=== PATIENT | female | born 1985 | race Caucasian/White ===

== ENCOUNTER 2017-07-29 06:15 | Inpatient (IN) | payer OTHER ==
[2017-07-29] MEDS ORDERED: TERBUTALINE 1 MG/ML VIAL SQ PRN (06:49)
[2017-07-29] MEDS ORDERED: METHYLERGONOVINE 0.2 MG/ML 1 ML AMP IM PRN (06:49)
[2017-07-29] MEDS ORDERED: OXYTOCIN 10 UNIT/ML 1 ML VIAL IM PRN (06:49)
[2017-07-29] MEDS ORDERED: CARBOPROST TROMETHAMINE 250 MCG/ML 1 ML AMP IM PRN (06:49)
[2017-07-29] MEDS ORDERED: LIDOCAINE 1% (PF) 10 MG/ML (30 ML SDV) SQ PRN (06:49)
[2017-07-29] MEDS: LACTATED RINGERS 1,000 ML IV SCH ×3 (07:05→16:48)
[2017-07-29] MEDS: OXYTOCIN 20 UNITS/1000 ML NS 1,000 ML IV SCH ×2 (07:30→23:38)
[2017-07-29 07:34] LABS: Basophils % (A) 0 %; CH 27.2; CHCM 31.9; Eosinophils # (A) 0.3 k/uL (0-0.7); Eosinophils % (A) 3 %; HCT 38.7 % (34.0-46.0); HDW 2.83; Hypochromasia Slight; Luc # (Auto) 0.08; Luc % (Auto) 1; Lymphocytes # (A) 1.3 k/uL (1.0-4.8); Lymphocytes % (A) 13 %; MCH 26.7 pg (25.0-35.0); MCHC 31.1 g/dL (31.0-37.0); MCV 85.7 fL (80.0-100.0); Mean Platelet Volume 7.3; Monocytes # (A) 0.5 k/uL (0-1.0); Monocytes % (A) 5 %; Neutrophils # (A) 8.1 k/uL (1.3-7.7); Neutrophils % (A) 79 %; RBC 4.51 m/uL (3.80-5.40); RDW 14.1 % (11.5-15.5); WBC 10.2 k/uL (3.8-10.6); WBC (Perox) 10.36
[2017-07-29 07:43] VITALS: BMI 54.3
[2017-07-29] MEDS ORDERED: BUTORPHANOL 1 MG/ML 1 ML VIAL IV PRN (09:30)
--- NOTE | 2017-07-29 09:35 | P.HPOB ---
History of Present Illness H&P Date: 07/29/17 Chief Complaint: 39-4/7 weeks, elective induction The patient is a 32-year-old 5 para 4004 admitted at 39-4/7 weeks as established by last menstrual period and confirmed by 12 week ultrasound. She is admitted for elective induction of labor with all signs reassuring. Her has been uncomplicated though she does carry the diagnosis of chronic hypertension for which she has been stable on labetalol 100 mg twice a day for the entirety of the . testing was reassuring throughout. She additionally is morbidly obese though growth was within the normal range in the third trimester. Diabetic screening was negative both early and in the second trimester. She additionally was found to be breech at 34+ weeks gestation but has reverted to vertex for the remainder of the . The fetus is in vertex presentation today. Group B strep status is negative. Obstetrical history: 5 para 4004 term vaginal deliveries without complications. Current statistics are listed above. EDC of 2016 was established by last menstrual period and confirmed by 12 week ultrasound. Laboratory workup demonstrates a blood type of B+ with a negative antibody screen. Rubella status is immune. The remainder of the laboratory workup was within normal limits. Early Glucola as well as second trimester Glucola were within normal limits. Group B strep status is negative. Gynecologic history: Unremarkable with no history of any infections to include STDs. Review of Systems Review of systems is confined to history of present illness. Past Medical History Past Medical History: Hypertension Additional Past Medical History / Comment(s): OB history: She has had 3 previous vaginal deliveries. This is her fifth . She has been on labetalol 100mg bid. B+, abs neg, Rub Imm, RPR NR, Hep B neg. History of Any Multi-Drug Resistant Organisms: None Reported Past Surgical History: No Surgical Hx Reported Past Anesthesia/Blood Transfusion Reactions: No Reported Reaction Past Psychological History: No Psychological Hx Reported Smoking Status: Never smoker Past Alcohol Use History: None Reported Past Drug Use History: None Reported - Past Family History Father Family Medical History: Diabetes Mellitus, Hypertension Medications and Allergies Home Medications Medication Instructions Recorded Confirmed Type Labetalol HCl [Labetalol HCl] 100 mg BID 10/25/15 07/29/17 History Pnv,Calcium 72/Iron/Folic Acid 1 tab PO DAILY 10/25/15 07/29/17 History [ Plus Tablet] Allergies Allergy/AdvReac Type Severity Reaction Status Date / Time No Known Allergies Allergy Verified 07/29/17 06:47 Exam - Vital Signs Vital signs: Vital Signs Temp Pulse Resp BP 07/29/17 06:47 98.0 F 85 18 139/77 Intake and Output 07/28/17 07/29/17 07/29/17 22:59 06:59 14:59 Other: Weight 143.789 kg In general, this is an obese white female in no acute distress. Her heart has a regular rhythm and rate without murmur. Her lungs are clear to auscultation bilaterally in all rowe. Her abdomen is obese, gravid, nondistended, has normal active bowel sounds, is soft, nontender, and without any palpable masses , hepatosplenomegaly, or hernias. Her extremities are without any cyanosis, clubbing, or significant edema and are nontender to palpation bilaterally. Digital cervical examination demonstrates her cervix to be approximately 2+ centimeters dilated, 50% effaced, the vertex in presentation at -2-3 station. Artificial rupture of membranes was carried out demonstrating clear fluid. Results Result Diagrams: 07/29/17 07:00 Abnormal Lab Results - Last 24 Hours (Table) 07/29/17 Range/Units 07:00 Neutrophils # 8.1 H (1.3-7.7) k/uL Assessment and Plan (1) Term Current Visit: Yes Status: Acute Code(s): Z34.80 - ENCOUNTER FOR SUPRVSN OF NORMAL , UNSP TRIMESTER SNOMED Code(s): 79593269 Plan: The patient has requested elective induction and been admitted for same. Pitocin augmentation has been started and she has undergone artificial rupture of membranes. She will continue to have close maternal and surveillance and expectant management will be practiced. She is a good candidate for either IV or epidural analgesia, whichever she may choose.
[2017-07-29] MEDS ORDERED: SODIUM CHLORIDE 0.9% 100 ML BAG ONE ×2 (13:12)
[2017-07-29] MEDS ORDERED: fentaNYL (PF) 50 MCG/ML 5 ML AMP ONE ×2 (13:12)
[2017-07-29] MEDS ORDERED: BUPIVACAINE (PF) 0.25% 30 ML VIAL ONE ×2 (13:12)
[2017-07-29] MEDS ORDERED: BUPIVACAINE (PF) 0.25% 25 ML, fentaNYL (PF) 200 MCG in SODIUM CHLORIDE 0.9% 71 ML EPIDURAL ONE (13:32)
[2017-07-29] MEDS ORDERED: diphenhydrAMINE 25 MG CAP PO PRN (22:54)
[2017-07-29] MEDS ORDERED: SIMETHICONE 80 MG CHEWABLE PO PRN (22:54)
[2017-07-29] MEDS ORDERED: LANOLIN CREAM 5 GM TUBE TOPICAL PRN (22:54)
[2017-07-29] MEDS ORDERED: ZOLPIDEM 5 MG TAB PO PRN (22:54)
[2017-07-29] MEDS ORDERED: WITCH HAZEL 1 EACH MED..PAD TOPICAL PRN (22:54)
[2017-07-29] MEDS ORDERED: Acetaminophen-Codeine 300-30mg TAB PO PRN ×2 (22:54)
[2017-07-29] MEDS ORDERED: IBUPROFEN 600 MG TAB PO PRN (22:54)
[2017-07-29] MEDS ORDERED: BENZOCAINE/MENTHOL SPRAY 1 GM/SPRAY AEROSOL TOPICAL PRN (22:54)
[2017-07-29] MEDS ORDERED: HYDROCORTISONE 2.5% RECTAL CREAM 30 GM TUBE RECTAL PRN (22:54)
[2017-07-29] MEDS ORDERED: diphenhydrAMINE 50 MG CAP PO PRN (22:54)
[2017-07-29] MEDS ORDERED: diphenhydrAMINE 50 MG/ML 1 ML VIAL IVP PRN ×2 (22:54)
[2017-07-29] MEDS ORDERED: DIPH,PERTUS(ACELL)TETVAC-LF 0.5 ML VIAL IM ONE (22:55)
--- NOTE | 2017-07-29 22:58 | P.PROBDLV ---
Vaginal Delivery Note - . Vaginal Delivery Note: The patient is a 32-year-old 5 para 4004 admitted at 39-5/7 weeks by good dating parameters. She is admitted for elective induction of labor with all signs reassuring. Her has been essentially uncomplicated though she does suffer from chronic hypertension was stable on labetalol 100 mg twice daily throughout the entire . testing was reassuring. On labor and delivery, she had Pitocin augmentation started and underwent artificial rupture of membranes demonstrating clear fluid. She made slow progress through the latent phase of labor and had an epidural catheter placed for analgesia. She then continued to make slow but steady progress through the active phase of labor and ultimately progressed to complete and -2 station. She pushed for approximately 30-40 minutes with no significant descent of the head. The decision was made to allow her to labor the fetus down a little farther and we had her rock from side to side for approximately 20-30 minutes. Recheck of the station then demonstrated the station to be at 0 to +1 station. She pushed over the course of 2-3 contractions to a normal spontaneous vaginal delivery of a viable 7 lbs. 9 oz. baby girl with Apgars of 7 at 1 minute and 9 at 5 minutes delivered in the direct occiput posterior position and nearly a brow presentation. The placenta was delivered spontaneously, intact, and grossly normal with a grossly normal, centrally inserted three-vessel cord. There was a small second-degree midline perineal laceration over the site of previous lacerations which was repaired in standard fashion using 3-0 chromic catgut without difficulty. Estimated blood loss for the entire case was approximately 200 mL. There were no complications. All sponge, instrument, and needle counts were correct. Both mother and are resting comfortably in recovery.
[2017-07-30] MEDS: ACETAMINOPHEN TAB 325 MG TAB PO PRN ×2 (00:57→15:39)
--- NOTE | 2017-07-30 08:43 | P.PNOBGVD ---
Subjective - Subjective Patient reports: Reports appetite normal, Reports voiding normally, Reports pain well controlled, Reports ambulating normally : doing well Objective - Latest Vital Signs Latest vital signs: Vital Signs Temp Pulse Resp BP 07/30/17 00:46 106 H 18 133/62 07/30/17 00:16 112 H 18 144/79 07/29/17 23:46 105 H 18 141/75 07/29/17 23:31 96 18 138/68 07/29/17 23:16 104 H 16 103/53 07/29/17 23:01 104 H 18 132/62 07/29/17 22:46 96.7 F L 111 H 18 145/81 Intake and Output 07/29/17 07/30/17 07/30/17 22:59 06:59 14:59 Intake Total 48.4 Balance 48.4 Intake: Intake, IV Titration 48.4 Amount Oxytocin 20 Units/1000 ml 48.4 Ns 1,000 ml @ 1 MILLIUNIT/MIN 3 mls/hr IV .Q24H MANUEL Rx#:[id number] Other: # Voids 0 2 - Exam Extremities: Present: normal Abdomen: Present: normal appearance, soft Uterus: Present: normal, firm (The uterine fundus systolic and nontender around the umbilicus.) Assessment and Plan (1) Term Current Visit: Yes Status: Acute Code(s): Z34.80 - ENCOUNTER FOR SUPRVSN OF NORMAL , UNSP TRIMESTER SNOMED Code(s): 05785331 (2) Normal vaginal delivery Current Visit: Yes Status: Acute Code(s): O80 - ENCOUNTER FOR FULL-TERM UNCOMPLICATED DELIVERY SNOMED Code(s): 39616599 Plan: Continue routine care. As her blood pressures remain low with no antihypertensives in the last 24-48 hours, we will hold them for now. I do anticipate discharge home tomorrow morning.
[2017-07-30] MEDS: SENNOSIDES-DOCUSATE SODIUM 1 EACH TAB PO SCH ×2 (08:59→19:47)
[2017-07-30 15:46] VITALS: RESP 18
[2017-07-30] MEDS ORDERED: LABETALOL 100 MG TAB PO PRN (20:31)
[2017-07-31] MEDS: SENNOSIDES-DOCUSATE SODIUM 1 EACH TAB PO SCH (08:40)
--- NOTE | 2017-07-31 08:50 | P.DS ---
Providers Date of admission: 07/29/17 06:38 Expected date of discharge: 07/31/17 Attending physician: Baldo Sidhu Primary care physician: Yonatan Stevens - Discharge Diagnosis(es) (1) Term Current Visit: Yes Status: Acute (2) Normal vaginal delivery Current Visit: Yes Status: Acute Hospital Course: The patient is a 32-year-old 5 para 4004 admitted at 39-5/7 weeks by good dating parameters perches admitted for elective induction with all signs reassuring. Her was uncomplicated and her diagnosis of chronic hypertension was stable throughout the on labetalol 100 mg twice daily she additionally carries a diagnosis of morbid obesity with a negative diabetic screening in both early and second trimester. Group B strep status is negative. On labor and delivery, she had Pitocin started followed by artificial rupture of membranes. She had an epidural catheter placed around the onset of the active phase of labor. Her labor course was long and slow but ultimately did progress to complete and she was ultimately able to push to a normal spontaneous vaginal delivery of a viable 7 lbs. 9 oz. baby girl with Apgars of 7 at 1 minute and 9 at 5 minutes. Her course was unremarkable vital signs remaining stable and her temperature was afebrile throughout. She was deemed stable for discharge by day #2 and was discharged home to follow-up in the office in 6 weeks' time routinely. Discharge instructions included calling for any significantly increased bleeding or foul-smelling lochia, significantly increased fever abdominal pain, perineal complaints, breast complaints, or anything else that concerned her. She was additionally instructed to have nothing in the vagina for at least 6 weeks time to include intercourse. She understood her instructions and agrees to follow up as noted above. Discharge medications included continued vitamins as well as [id number] analgesic pain medications. Maternal blood type is B+ and rubella status is immune. Procedures: #1. Pitocin induction #2. Artificial rupture of membranes #3. Epidural analgesia #4. Normal spontaneous vaginal delivery #5. Repair of perineal laceration Patient Condition at Discharge: Good Plan - Discharge Summary New Discharge Prescriptions: No Action Labetalol HCl [Labetalol HCl] 100 mg BID Pnv,Calcium 72/Iron/Folic Acid [ Plus Tablet] 1 tab PO DAILY Discharge Medication List Labetalol HCl [Labetalol HCl] 100 mg BID 10/25/15 [History] Pnv,Calcium 72/Iron/Folic Acid [ Plus Tablet] 1 tab PO DAILY 10/25/15 [ History] Follow up Appointment(s)/Referral(s): Baldo Sidhu MD [STAFF PHYSICIAN] - 6 Weeks Discharge Disposition: HOME SELF-CARE
[2017-07-31 16:33] VITALS: BP 147/86; PULSE 83; TEMP 98.2
== END 2017-07-31 18:18 | disposition home or self-care (01) | DRG 774 ==
LOC: 4FBP 06:38
PROVIDERS: ADMIT Obstetrics & Gynecology; ATTEND Obstetrics & Gynecology
PROC: 10907ZC Drainage of Amniotic Fluid, Therapeutic from Products of Conception, Via Natural or Artificial Opening (ICD-10-PCS; principal; 2017-07-29)
PROC: 10E0XZZ Delivery of Products of Conception, External Approach (ICD-10-PCS; 2017-07-29)
PROC: 0KQM0ZZ Repair Perineum Muscle, Open Approach (ICD-10-PCS; 2017-07-29)
PROC: 3E033VJ Introduction of Other Hormone into Peripheral Vein, Percutaneous Approach (ICD-10-PCS; 2017-07-29)
PROC: 3E0R3NZ Introduction of Analgesics, Hypnotics, Sedatives into Spinal Canal, Percutaneous Approach (ICD-10-PCS; 2017-07-29)
PROC: 00HU33Z Insertion of Infusion Device into Spinal Canal, Percutaneous Approach (ICD-10-PCS; 2017-07-29)
DX: O10.92 Unspecified pre-existing hypertension complicating childbirth (principal); E66.01 Morbid (severe) obesity due to excess calories; O99.214 Obesity complicating childbirth; O32.3XX0 Maternal care for face, brow and chin presentation, not applicable or unspecified; O70.1 Second degree perineal laceration during delivery; Z37.0 Single live birth; Z3A.39 39 weeks gestation of pregnancy; Z83.3 Family history of diabetes mellitus; Z82.49 Family history of ischemic heart disease and other diseases of the circulatory system; Z79.899 Other long term (current) drug therapy
CPT/HCPCS: 85025; 88307